=== PATIENT | male | born 1955 | race Caucasian/White ===

== ENCOUNTER → 2018-09-14 | Outpatient (CLI) | payer BC | LOC: COL.RAD 10:22 | DX: M47.814 Spondylosis without myelopathy or radiculopathy, thoracic region (principal); R22.1 Localized swelling, mass and lump, neck ==

== ENCOUNTER 2018-09-21 06:22 | Outpatient (CLI) | payer BC ==
--- NOTE | 2018-09-18 12:03 | NUR ---
left msg on machine.
[~2018-09-21] VITALS: Ht 177.8 cm; Wt 73.6 kg
[2018-09-21] VITALS (13 sets, daily range): BP systolic 117–156; BP diastolic 73–99; PULSE 63–91
[2018-09-21] MEDS ORDERED: NORCO 325 MG-51 TAB PO (06:43)
--- NOTE | 2018-09-21 08:00 | NUR ---
PT ON THE TABLE, MOMNITORING EQUIPMENT PLACED. IMAGES DONE AND SENT
--- NOTE | 2018-09-21 08:15 | NUR ---
PT DOING WELL. NO PAIN, JUST SLIGHT DISCOMFORT AND WAS GIVEN ADDITIONAL LIDOCAINE. SAMPLES TAKEN AND PLACED IN FORMALIN. ALL MONITORING EQUIPMENT REMOVED, SITE CLEANED AND PT ASSISTED TO CART.
--- NOTE | 2018-09-21 10:29 | NUR ---
tHIS NURSE SPOKE WITH dR Anderson.cLARIFIED NO POST XRAY NEEDED,ORDERS RECEIVED TO DISCHARGE HOME
--- NOTE | 2018-09-21 10:40 | NUR ---
Discharge instructions given to pt.Pt verbalizes understanding.Pt escorted out by student nurse.
== END 2018-09-21 10:43 | disposition home or self-care (01) ==
LOC: COL.RAD 06:22
DX: R91.8 Other nonspecific abnormal finding of lung field (principal)

== ENCOUNTER → 2018-10-13 | Outpatient (CLI) | payer BC ==
[~2018-10-13] MED LIST: NORCO 325 MG-51 TAB PO
== END ==
LOC: COL.PUL 10:19
DX: C34.12 Malignant neoplasm of upper lobe, left bronchus or lung (principal); C79.51 Secondary malignant neoplasm of bone; Z87.891 Personal history of nicotine dependence

== ENCOUNTER 2018-11-06 15:39 | Inpatient (IN) | payer BC ==
[~2018-11-06] VITALS: Ht 175.3 cm; Wt 79.8 kg
[~2018-11-06 15:39] MED LIST changes: +DAZIDOX10 MG PO; -NORCO 325 MG-51 TAB PO
[2018-11-06 16:12] LABS: BASO # 0.1 (0.0-0.2); BASO % 0.4 % (0.0-2.0); EOS % 0.2 % (0-4.0); GRAN % 90.9 % (42.2-75.2); HEMOGLOBIN 11.4 g/dl (13.5-18.0); LYMPH # 0.6 (1.2-3.4); LYMPH % 5.2 % (20.0-51.0); MEAN CELL VOLUME 98 fl (80.0-100.0); MEAN CORPUSCULAR HEMOGLOBIN 31 pg (27.0-31.0); MEAN CORPUSCULAR HGB CONC 32 g/dl (33.0-37.0); MEAN PLATELET VOLUME 9.3 fl (7.4-10.4); MONO # 0.3 (0.1-0.6); MONO % 2.7 % (1.7-9.3); PLATELET COUNT 331 K/mm3 (130-400); RED BLOOD COUNT 3.65 M/mm3 (4.20-5.60); REDCELL DISTRIBUTION WIDTH-CV 12.8 % (11.5-14.5)
[2018-11-06 16:17] LABS: HEMATOCRIT 35.7 % (42.0-52.0)
[2018-11-06 16:27] LABS: ALANINE AMINOTRANSFERASE 17 U/L (21-72); ALKALINE PHOSPHATASE 136 U/L (50-136); ANION GAP 7 mmol/L (7-16); AST,SGOT 23 U/L (15-37); BILIRUBIN,TOTAL 0.3 mg/dL (0.0-1.0); BLOOD UREA NITROGEN 18 mg/dL (9-20); CALCIUM 8.7 mg/dL (8.4-10.2); CARBON DIOXIDE 31 mmol/L (22-30); CHLORIDE 94 mmol/L (98-107); CREATININE, serum 0.68 (0.66-1.25); GLUCOSE 112 mg/dL (74-106); POTASSIUM 4.1 mmol/L (3.4-5.0); SODIUM 132 mmol/L (137-145); TOTAL PROTEIN 6.6 gm/dL (6.4-8.2)
[2018-11-06 16:35] LABS: TROPONIN-I < 0.012 ng/mL (0.000-0.035)
[2018-11-06 16:38] LABS: C-REACTIVE PROTEIN 17.3 mg/dL (0.0-0.9)
[2018-11-06] MEDS ORDERED: FENTANYL 50MCG TD (17:20)
[2018-11-06] MEDS ORDERED: MILK OF MA400 MG/52 PO (19:46)
[2018-11-06] MEDS ORDERED: STOOL SOFTENER100 M2 PO (19:47)
[2018-11-06 20:27] VITALS: BP 104/61; PULSE 80
[2018-11-06 20:30] VITALS: BP 104/61; PULSE 78; TEMP 98.7
--- NOTE | 2018-11-06 23:12 | NUR ---
Patient arrived to medical floor room 310 from ER at approximately 1920. Denies having pain and discomfort. Alert and oriented x 4, and able to make needs known. Son and at bedside upon arrival. Portacath to right chest, accessed by ER. NS running at 125 ml/hr per orders. Called nurse practioner to clarify ordes: give zirthromax IV tonight, start PO tomorrow. No need to change Fentanyl patch until its due on Tuesday (current patch to left scapula, changed on Tuesday). Port to right chest is without redness, warmth, swelling, and pain. LS coarse throughout. Denies having SOB and dyspnea. Wearing oxygen at 2 L/min via NC. Heart rate regular. BSAx4. 1+ edema BLE. Resting in bed with eyes closed at this time. Call light is within reach.
[2018-11-06 23:31] VITALS: BP 113/77; PULSE 86; TEMP 98.7
[2018-11-07 03:23] VITALS: BP 120/65; PULSE 99; TEMP 101.6
--- NOTE | 2018-11-07 04:01 | NUR ---
Patient has been resting in bed with eyes closed. Did complain of level 9 pain to back of shoulder blades around 0150. Given PRN Roxicodone 20 mg per PRN order. Patient had fever of 101.6 around 0330, and was given PRN APAP at that time. Continues to have moist, productive cough. Given collection cup for sputum culture, and explained how it worked, and patient voiced understanding. Denies having SOB and dyspnea. Continues to wear oxygen at 2 L/min via NC. NS continues to run into port to right chest at 125 ml/hr per orders. Resting in bed with eyes closed at this time. Call light is within reach.
[2018-11-07 05:53] LABS: BASO % 0.4 % (0.0-2.0); EOS % 0.4 % (0-4.0); GRAN # 9.2 (1.4-6.5); GRAN % 88.4 % (42.2-75.2); LYMPH # 0.7 (1.2-3.4); MEAN CELL VOLUME 99 fl (80.0-100.0); MEAN CORPUSCULAR HGB CONC 32 g/dl (33.0-37.0); MEAN PLATELET VOLUME 9.9 fl (7.4-10.4); MONO # 0.3 (0.1-0.6); MONO % 3.2 % (1.7-9.3); PLATELET COUNT 275 K/mm3 (130-400); RED BLOOD COUNT 3.09 M/mm3 (4.20-5.60); REDCELL DISTRIBUTION WIDTH-CV 13.2 % (11.5-14.5)
[2018-11-07 05:54] LABS: HEMATOCRIT 30.7 % (42.0-52.0); HEMOGLOBIN 9.7 g/dl (13.5-18.0); MEAN CORPUSCULAR HEMOGLOBIN 31 pg (27.0-31.0)
[2018-11-07 06:04] LABS: CALCIUM 8.1 mg/dL (8.4-10.2); CREATININE, serum 0.62 (0.66-1.25); POTASSIUM 4.4 mmol/L (3.4-5.0)
--- NOTE | 2018-11-07 07:01 | NUR ---
Report given to first shift nurse.
[2018-11-07 07:24] VITALS: BP 95/56; PULSE 68; TEMP 97.7
--- NOTE | 2018-11-07 08:46 | NUR ---
Patient assessment complete. Patient sitting in bed with at bedside. Heart RRR. Lung sounds diminished at bases, rt side coarse. Patient denies SOB, dizziness or lightheadedness. When asked about dizziness or lightheadedness, per patient "what is that?". Per patient, "no i don't get dizzy, it just takes a minute to get up". patient c/o some left sided chest pain r/t coughing. Denies nausea/vomiting or palpitations. Radial pulses strong bilaterally. denies other needs at this time. patient cooperative with cares.
--- NOTE | 2018-11-07 11:22 | NUR ---
First visit from the hot room attendant. No needs right now.
[2018-11-07 12:24] VITALS: BP 116/86; PULSE 77; TEMP 98.1
--- NOTE | 2018-11-07 13:11 | NUR ---
MANDA met with the patient and patient's , Lissette, to discuss discharge plan. The patient lives in [place] with his . He reports independence with ADLs and does not use any DME. The patient's PCP is Dr. Jeffy Mae and he receives his medications at [facility]. He reports no difficulties obtaining his meds. The patient does not have advanced directives, but he was interested in obtaining a form for DPOA-HC. MANDA provided. The patient plans to return home with his upon discharge. No additional needs at this time.
[2018-11-07 16:12] VITALS: BP 122/70; PULSE 88; TEMP 100.7
[2018-11-07 19:11] VITALS: BP 111/68; PULSE 87; TEMP 98.2
--- NOTE | 2018-11-07 19:23 | NUR ---
Patient had uneventful day. C/o left sided chest pain from coughing. Denies other needs. Report given to corrina ashraf. has been at bedside throughout day.
--- NOTE | 2018-11-07 19:43 | NUR ---
PT REFUSES,BUT SON CALLED BACK 3MNS LATER FOR A TX
--- NOTE | 2018-11-07 22:11 | NUR ---
Patient assessed around 1999. Complained of level 7 pain to shoulderblades, and was given PRN Oxycodone per orders. Denies having pain and discomfort at this time. Port to right chest. NS running at 125 ml/hr. Site is without redness, warmth, swelling, and pain. LS coarse throughout. On oxygen at 1.5 L/min via NC. Moist cough, but unable to produce sputum. Denies having SOB and dyspnea. Heart with regular rhythm, tachycadia. BSAx4. No edema. Resting in bed with eyes closed at this time. Call light is within reach. at bedside.
[2018-11-07 23:29] VITALS: BP 132/71; PULSE 81; TEMP 98.1
[2018-11-08 03:14] VITALS: BP 109/63; PULSE 103; TEMP 98.7
--- NOTE | 2018-11-08 04:45 | NUR ---
Patient has not had any further complaints of pain or discomfort so far this shift. Has been resting in bed with eyes closed. NS running at 125 ml/hr to port to right chest. Voices no questions, needs, or concerns at this time. Resting in bed with eyes closed. Call light is within reach.
[2018-11-08 06:06] LABS: BASO % 0.4 % (0.0-2.0); EOS # 0.1 (0.0-0.7); GRAN # 8.1 (1.4-6.5); GRAN % 86.6 % (42.2-75.2); LYMPH # 0.7 (1.2-3.4); LYMPH % 7.3 % (20.0-51.0); MEAN CELL VOLUME 100 fl (80.0-100.0); MEAN CORPUSCULAR HEMOGLOBIN 31 pg (27.0-31.0); MEAN CORPUSCULAR HGB CONC 31 g/dl (33.0-37.0); MEAN PLATELET VOLUME 9.6 fl (7.4-10.4); MONO # 0.4 (0.1-0.6); MONO % 3.8 % (1.7-9.3); PLATELET COUNT 296 K/mm3 (130-400)
[2018-11-08 06:22] LABS: CALCIUM 8.1 mg/dL (8.4-10.2); CREATININE, serum 0.61 (0.66-1.25); POTASSIUM 4.3 mmol/L (3.4-5.0)
--- NOTE | 2018-11-08 07:00 | NUR ---
This nurse receiving report, heard loud noise come from patient room. This nurse and Swetha RN went into room to check on patient. Patient was getting back into bed. Per patient he did not fall, he stumbled into bathroom door. Denies falling to floor but hit toe. Settled patient into bed, bed alarm on. Call light within reach. Patient asked to have blinds opened.
[2018-11-08 07:16] VITALS: BP 143/76; PULSE 99; TEMP 98.4
--- NOTE | 2018-11-08 07:27 | NUR ---
Report given to day shift nurse.
--- NOTE | 2018-11-08 10:16 | NUR ---
Patient assessment complete and charted. Lung sounds diminished throughout this morning. Heart RR, tachy. patient appears very sleepy this morning, easily arousable. Per Pt, "didn't sleep well last night". Patient on 2L NC. C/O left sided chest pain. BLE 1+. NS at 125mls/hr, no complications. Denies other needs at this time. at bedside, call light within reach.
[2018-11-08 11:47] VITALS: BP 111/65; PULSE 82; TEMP 98.6
[2018-11-08] MEDS ORDERED: ZITHROMAX500 M2 PO (14:44)
[2018-11-08] MEDS ORDERED: OMNICEF 300MG300 MG PO (14:51)
--- NOTE | 2018-11-08 15:03 | NUR ---
The patient qualified for home oxygen. MANDA met with the patient and patient's to discuss DME options and presented and explained the patient choice form for DME. The patient chose [facility]. Patient choice form signed by the patient and he was provided a copy. MANDA contacted [facility]. [facility] reports that they are not taking any new oxygen orders at this time. MANDA then met with the patient and patient's to inform. The patient then chose [facility]. MANDA contacted and faxed the patient's oxygen order to Darnell at [facility]. MANDA awaiting to hear back from [facility].
[2018-11-08 15:16] VITALS: BP 115/64; PULSE 106; TEMP 98.5
--- NOTE | 2018-11-08 17:00 | NUR ---
Patient laying in bed awaiting discharge. Patient and family awaiting for O2 delivery for home use. This nurse went to de-access patient portacath. Patient de-accessed port on his own. Site is CDI, no bleeding or complications. Patient and family getting irritated that they haven't left yet.
--- NOTE | 2018-11-08 17:58 | NUR ---
O2 for home use just delivered. Discharge instructions reviewed and discussed. All questions answered. No other needs. Patient escorted out by [facility] staff.
--- NOTE | 2018-11-09 10:50 | NUR ---
[facility] delivered the patient's oxygen to his room.
== END 2018-11-08 18:17 | disposition home or self-care (01) | DRG 194 ==
LOC: COL.ER 15:39 → MEDICAL 17:35
PROVIDERS: Emergency Medicine; Physician Assistant; ADMIT Internal Medicine
DX: J18.1 Lobar pneumonia, unspecified organism (principal); C34.12 Malignant neoplasm of upper lobe, left bronchus or lung; C79.51 Secondary malignant neoplasm of bone; K59.00 Constipation, unspecified; R53.1 Weakness; Z87.891 Personal history of nicotine dependence
CPT/HCPCS: 99222-AI; 99232-AI; 99239; A4216; J0456; J0696; J1650; J7030; J7050; Q9967

== ENCOUNTER 2020-01-01 09:16 | Emergency (ER) | payer BC ==
[~2020-01-01] VITALS: Ht 175.3 cm; Wt 65.9 kg
[~2020-01-01 09:16] MED LIST changes: +FENTANYL 50MCG TD; +MILK OF MA400 MG/52 PO; +OMNICEF 300MG300 MG PO; +STOOL SOFTENER100 M2 PO; +ZITHROMAX500 M2 PO
[2020-01-01 09:29] VITALS: TEMP 98.4
[2020-01-01 10:21] LABS: BASO # 0.1 (0.0-0.2); BASO % 1.3 % (0.0-2.0); EOS # 0.4 (0.0-0.7); EOS % 5.8 % (0-4.0); GRAN # 4.1 (1.4-6.5); GRAN % 68.5 % (42.2-75.2); HEMATOCRIT 42.4 % (42.0-52.0); HEMOGLOBIN 14.3 g/dl (13.5-18.0); LYMPH # 0.9 (1.2-3.4); LYMPH % 15.5 % (20.0-51.0); MEAN CELL VOLUME 94 fl (80.0-100.0); MEAN CORPUSCULAR HEMOGLOBIN 32 pg (27.0-31.0); MEAN CORPUSCULAR HGB CONC 34 g/dl (33.0-37.0); MEAN PLATELET VOLUME 10.3 fl (7.4-10.4); MONO # 0.5 (0.1-0.6); MONO % 8.7 % (1.7-9.3); PLATELET COUNT 214 K/mm3 (130-400); RED BLOOD COUNT 4.49 M/mm3 (4.20-5.60); REDCELL DISTRIBUTION WIDTH-CV 11.5 % (11.5-14.5)
[2020-01-01 10:45] LABS: COLLECTION METHOD CLEAN CATCH
[2020-01-01 10:53] LABS: PH 5 (5-8); SQUAMOUS EPITHELIAL None Seen /hpf; URINE APPEARANCE Clear; URINE BACTERIA None Seen /hpf; URINE BILIRUBIN Negative (NEGATIVE); URINE BLOOD Negative (NEGATIVE); URINE COLOR Yellow; URINE GLUCOSE Negative (NEGATIVE); URINE KETONE 2+ (NEGATIVE); URINE LEUKOCYTE ESTERASE Negative (NEGATIVE); URINE NITRATE Negative (NEGATIVE); URINE PROTEIN(semi-quant) Negative (NEGATIVE); URINE RBC 0-2 /hpf; URINE UROBILINOGEN Negative (NEGATIVE)
[2020-01-01 12:09] LABS: ALBUMIN 3.9 gm/dL (3.5-5.0); BILIRUBIN,TOTAL 0.7 mg/dL (0.0-1.0); CALCIUM 9.2 mg/dL (8.4-10.2); CREATININE, serum 0.78 (0.66-1.25); POTASSIUM 4.1 mmol/L (3.4-5.0); TOTAL PROTEIN 7.5 gm/dL (6.4-8.2)
[2020-01-01] MEDS ORDERED: ZOFRAN ODT4 MG PO (14:30)
[2020-01-01 14:40] VITALS: BP 95/68; PULSE 90
== END 2020-01-01 14:43 | disposition home or self-care (01) ==
LOC: COL.ER 09:16
PROVIDERS: Emergency Medicine; Physician Assistant
DX: E16.2 Hypoglycemia, unspecified (principal); Z85.118 Personal history of other malignant neoplasm of bronchus and lung; Z92.21 Personal history of antineoplastic chemotherapy; Z87.891 Personal history of nicotine dependence
CPT/HCPCS: J1170; J2405; J2550; J7030; Q9967

== ENCOUNTER 2020-03-17 16:15 | Inpatient (IN) | payer BC ==
[2020-03-17] VITALS (179 sets, daily range): BP systolic 103–124; BP diastolic 69–85; PULSE 72–81; TEMP 97.7–99.4; O2SAT 92–100
[~2020-03-17] VITALS: Ht 177.8 cm; Wt 67.4 kg
[~2020-03-17 16:15] MED LIST changes: +ZOFRAN ODT4 MG PO
[2020-03-17 18:09] LABS: ARTERIAL BLD GAS O2 SATURATION 95.7 % (92-100); ARTERIAL BLOOD GAS BASE EXCESS -5.6 (-2-2); ARTERIAL BLOOD GAS PCO2 34.3 mmHg (35-45); ARTERIAL BLOOD GAS PO2 80.2 mmHg (80-100); ARTERIAL BLOOD GAS pH 7.36 (7.35-7.45)
--- NOTE | 2020-03-17 19:30 | NUR ---
received report from LARISSA Whitley.
--- NOTE | 2020-03-17 19:49 | NUR ---
Patient arrived to unit via EMS transport at approximately 1720. Patient remains alert and oriented, answers questions appropriately. Patient is able to answer questions about medical history and current medications, is mildly dyspnic while speaking, on 2L O2 via NC. Patient is voiding into a urinal independently, urine is ronda and clear. IVF and antibiotics running per order. COVID test conducted per order, patient tolerated well. Labs collected per order via peripherial stick. Patient denies needs at this time, call light within reach, bed rails up, alarm on.
[2020-03-17 19:50] LABS: BASO % 0.3 % (0.0-2.0); EOS % 0.3 % (0-4.0); GRAN # 6.7 (1.4-6.5); LYMPH # 0.3 (1.2-3.4); LYMPH % 3.5 % (20.0-51.0); MEAN CELL VOLUME 96 fl (80.0-100.0); MEAN CORPUSCULAR HEMOGLOBIN 32 pg (27.0-31.0); MEAN CORPUSCULAR HGB CONC 34 g/dl (33.0-37.0); MEAN PLATELET VOLUME 9.2 fl (7.4-10.4); MONO # 0.1 (0.1-0.6); MONO % 1.5 % (1.7-9.3); PLATELET COUNT 311 K/mm3 (130-400); RED BLOOD COUNT 3.71 M/mm3 (4.20-5.60); REDCELL DISTRIBUTION WIDTH-CV 14.9 % (11.5-14.5)
[2020-03-17 19:53] LABS: HEMATOCRIT 35.6 % (42.0-52.0)
[2020-03-17 20:00] LABS: CREATININE, serum 0.57 (0.66-1.25); INR 1.3 (0.8-3.0); POTASSIUM 4.4 mmol/L (3.4-5.0); PROTHROMBIN TIME 14.6 SECONDS (9.7-12.8)
[2020-03-18] VITALS (505 sets, daily range): BP systolic 101–139; BP diastolic 75–87; PULSE 76–88; TEMP 97.6–98.2; O2SAT 74–100
--- NOTE | 2020-03-18 04:44 | NUR ---
report given to LARISSA Hough. care trasnferred at this time.
[2020-03-18 09:50] LABS: MEAN CELL VOLUME 96 fl (80.0-100.0); MEAN CORPUSCULAR HEMOGLOBIN 32 pg (27.0-31.0); MEAN CORPUSCULAR HGB CONC 34 g/dl (33.0-37.0); MEAN PLATELET VOLUME 9.4 fl (7.4-10.4); PLATELET COUNT 371 K/mm3 (130-400); RED BLOOD COUNT 3.73 M/mm3 (4.20-5.60); REDCELL DISTRIBUTION WIDTH-CV 14.6 % (11.5-14.5)
[2020-03-18 09:52] LABS: CALCIUM 8.5 mg/dL (8.4-10.2); CREATININE, serum 0.55 (0.66-1.25); POTASSIUM 4.1 mmol/L (3.4-5.0)
--- NOTE | 2020-03-18 10:02 | NUR ---
Fire Systems Inspector contacted patient's , Lissette (ph#[phone]) to discuss discharge planning as patient is currently in contact isolation. Patient lives in [place] with Austenyamil and sees Dr. Mae for primary care. Patient follows with Dr. Wheeler and Mirnacalista reports they stopped chemotherapy in December as patient got really sick. Patient obtains medications from [facility] with no difficulties. Patient does not use any DME and is normally independent with ADLS. Mirnacalista reports that she did have to provide some assistance over the weekend due to patient being so sick. Lissette advised that patient does not have DPOA-HC. Plan is for patient to return home at discharge. MANDA attended clinical rounds with the team and patient to transfer to medical floor today. MANDA requested PT/OT to be ordered and will continue to follow.
[2020-03-18 10:28] LABS: HEMATOCRIT 35.8 % (42.0-52.0)
[2020-03-18 10:33] LABS: BAND 14 % (0-10); LYMPHOCYTE 7 % (20.0-51.0); NEUTROPHILS 79 % (42.0-75.2); PLATELET ESTIMATE NORMAL (NORMAL)
--- NOTE | 2020-03-18 22:29 | NUR ---
Pt resting in bed, assessment completed. pt denies shortness of breath, chest pain, and pain. gave meds per AUG, no other needs at this time.
[2020-03-19] VITALS: BP 134/79; PULSE 75; TEMP 98.1
[2020-03-19 03:58] VITALS: BP 137/83; PULSE 73; TEMP 97.7
--- NOTE | 2020-03-19 05:06 | NUR ---
pt sleeping in bed most of shift, independent in room and called for any needs. pt denies pain or shortness of breath and is on room air. no other needs at this time, will continue to monitor.
[2020-03-19 06:42] LABS: MEAN CELL VOLUME 96 fl (80.0-100.0); MEAN CORPUSCULAR HEMOGLOBIN 32 pg (27.0-31.0); MEAN CORPUSCULAR HGB CONC 33 g/dl (33.0-37.0); MEAN PLATELET VOLUME 9.4 fl (7.4-10.4); PLATELET COUNT 373 K/mm3 (130-400); RED BLOOD COUNT 3.43 M/mm3 (4.20-5.60); REDCELL DISTRIBUTION WIDTH-CV 14.9 % (11.5-14.5)
[2020-03-19 06:59] LABS: CALCIUM 8.5 mg/dL (8.4-10.2); CREATININE, serum 0.55 (0.66-1.25); POTASSIUM 3.8 mmol/L (3.4-5.0)
[2020-03-19 07:10] LABS: HEMATOCRIT 32.9 % (42.0-52.0)
--- NOTE | 2020-03-19 07:30 | NUR ---
PATIENT IS AWAKE IN ROOM WANTING TELE AND IV DISCONNECTED BECAUSE HE WAS READY TO GO HOME. DID AGREE TO WAIT TO SPEAK WITH PROVIDERS BEFORE REMOVING LINES HE WAS TO BE GETTING IV ANTIBIOTICS. HE STATED HIS WOULD BE HERE BY 0800 TO PICK HIM UP. I DID TELL HIM THERE WAS NO GUARANTEE THAT HE WOULD BE RELEASED BY THEN.
[2020-03-19 07:35] VITALS: BP 124/76; PULSE 79; TEMP 97.7
[2020-03-19 08:54] LABS: BAND 23 % (0-10); LYMPHOCYTE 5 % (20.0-51.0); NEUTROPHILS 68 % (42.0-75.2)
[2020-03-19 08:55] LABS: PLATELET ESTIMATE NORMAL (NORMAL)
--- NOTE | 2020-03-19 09:36 | NUR ---
Initial visit; Patient talked at length about his health issues and thanked Shiatsu Therapist for listening, offering spiritual care, especially prayer. Shiatsu Therapist will follow up while Austin is a patient here.
[2020-03-19 11:19] VITALS: BP 115/66; PULSE 87; TEMP 97.8
[2020-03-19] MEDS ORDERED: OMNICEF 300MG300 MG PO (12:35)
[2020-03-19] MEDS ORDERED: LEVAQUIN 750MG750 M1 PO (12:36)
--- NOTE | 2020-03-19 17:35 | NUR ---
PATIENT DISCHARGED HOME WITH AT 1400, REMOVED OWN TELEMETRY AND INT BEFORE NURSING STAFF COULD ENTER ROOM. IT WAS ASKED THAT IN THE FUTURE THAT HE WAIT FOR STAFF TO REMOVED PERIPHERAL LINE WE NEED TO ASSESS AFTER REMOVAL. PERSONAL BELONGINGS WITH PATIENT AND HE WAS ESCORTED TO PRIVATE VEHICLE BY [facility] STAFF.
== END 2020-03-19 14:00 | disposition home or self-care (01) | DRG 193 ==
LOC: IMCU 16:15 → ICU 17:44 → MEDICAL 17:44
PROVIDERS: Nurse Practitioner Primary Care; Physician Assistant; Student in an Organized Health Care Education/Training Program; ADMIT Internal Medicine
DX: J18.9 Pneumonia, unspecified organism (principal); J96.01 Acute respiratory failure with hypoxia; E87.1 Hypo-osmolality and hyponatremia; E87.2 Acidosis; Z20.828 Contact with and (suspected) exposure to other viral communicable diseases; I95.9 Hypotension, unspecified; J43.9 Emphysema, unspecified; E16.2 Hypoglycemia, unspecified; Z85.118 Personal history of other malignant neoplasm of bronchus and lung; Z87.891 Personal history of nicotine dependence
CPT/HCPCS: 99223-AI; 99239; J1100; J1650; J1956; J2543; J7030

== ENCOUNTER 2020-03-25 13:40 | Inpatient (IN) | payer BC ==
[2020-03-25] VITALS (221 sets, daily range): BP systolic 76–144; BP diastolic 63–99; PULSE 54–84; TEMP 97.9–100.3; O2SAT 81–100
[~2020-03-25] VITALS: Ht 177.8 cm; Wt 69.0 kg
[~2020-03-25 13:40] MED LIST changes: +LEVAQUIN 750MG750 M1 PO
[2020-03-25 14:43] LABS: BASO # 0.1 (0.0-0.2); BASO % 0.7 % (0.0-2.0); EOS # 0.3 (0.0-0.7); EOS % 4.4 % (0-4.0); GRAN # 5.2 (1.4-6.5); HEMATOCRIT 38.8 % (42.0-52.0); HEMOGLOBIN 13.2 g/dl (13.5-18.0); LYMPH # 0.6 (1.2-3.4); LYMPH % 8.3 % (20.0-51.0); MEAN CELL VOLUME 94 fl (80.0-100.0); MEAN CORPUSCULAR HEMOGLOBIN 32 pg (27.0-31.0); MEAN CORPUSCULAR HGB CONC 34 g/dl (33.0-37.0); MEAN PLATELET VOLUME 9.3 fl (7.4-10.4); MONO # 0.7 (0.1-0.6); MONO % 10.3 % (1.7-9.3); PLATELET COUNT 304 K/mm3 (130-400); RED BLOOD COUNT 4.13 M/mm3 (4.20-5.60); REDCELL DISTRIBUTION WIDTH-CV 14.8 % (11.5-14.5)
[2020-03-25 14:49] LABS: ARTERIAL BLD GAS O2 SATURATION 92.2 % (92-100); ARTERIAL BLD GAS TCO2 CT 21.9; ARTERIAL BLOOD GAS BASE EXCESS -1.7 (-2-2); ARTERIAL BLOOD GAS PCO2 29.8 mmHg (35-45); ARTERIAL BLOOD GAS pH 7.47 (7.35-7.45)
[2020-03-25 14:54] LABS: ALBUMIN 2.9 gm/dL (3.5-5.0); BILIRUBIN,TOTAL 0.6 mg/dL (0.0-1.0); CREATININE, serum 0.59 (0.66-1.25); POTASSIUM 3.8 mmol/L (3.4-5.0); TOTAL PROTEIN 5.9 gm/dL (6.4-8.2)
[2020-03-25 18:41] LABS: CLOSTRIDIUM DIFF A/B NEG; CLOSTRIDIUM DIFF A/B INTERP No C.diff present
--- NOTE | 2020-03-25 19:35 | NUR ---
Assessment complete; Patient alert and oriented and mildly drowsy. Denies any pain or shortness of breath. Shortly after initiation of levophed, HR observed dropping to 49 several times then increasing back to 60's. Some ectopy noted. Levophed dose lowered. No further episodes of bradycardia or ectopy noted after lowering dose. Will continue to [facility].
--- NOTE | 2020-03-25 21:12 | NUR ---
Patient transported to CT. Attached to portable monitor. Tolerated procedure well; returned to the unit at 2126.
[2020-03-26] VITALS (480 sets, daily range): BP systolic 103–132; BP diastolic 63–88; PULSE 52–77; TEMP 97.6–98.3; O2SAT 81–100
--- NOTE | 2020-03-26 | NUR ---
Patient's skin cool and clammy. Difficulty obtaining temperature orally or via axillary. Temp 97.6 obtained via groin. warm blankets placed on patient. Fan had been on and was turned off at this time. Will continue to monitor.
[2020-03-26 01:37] LABS: COLLECTION METHOD CLEAN CATCH
[2020-03-26 01:42] LABS: MUCOUS Present /lpf; PH 5 (5-8); SQUAMOUS EPITHELIAL None Seen /hpf; URINE APPEARANCE Clear; URINE BACTERIA None Seen /hpf; URINE BILIRUBIN Negative (NEGATIVE); URINE BLOOD Negative (NEGATIVE); URINE COLOR Straw; URINE GLUCOSE Negative (NEGATIVE); URINE KETONE 1+ (NEGATIVE); URINE LEUKOCYTE ESTERASE Negative (NEGATIVE); URINE NITRATE Negative (NEGATIVE); URINE PROTEIN(semi-quant) Negative (NEGATIVE); URINE RBC None Seen /hpf; URINE UROBILINOGEN Negative (NEGATIVE)
[2020-03-26 05:00] LABS: BASO % 0.8 % (0.0-2.0); EOS % 0.4 % (0-4.0); GRAN # 2.2 (1.4-6.5); GRAN % 84.1 % (42.2-75.2); HEMOGLOBIN 11.7 g/dl (13.5-18.0); LYMPH # 0.3 (1.2-3.4); LYMPH % 10.6 % (20.0-51.0); MEAN CORPUSCULAR HEMOGLOBIN 32 pg (27.0-31.0); MEAN CORPUSCULAR HGB CONC 33 g/dl (33.0-37.0); MONO # 0.1 (0.1-0.6); PLATELET COUNT 262 K/mm3 (130-400); RED BLOOD COUNT 3.64 M/mm3 (4.20-5.60); REDCELL DISTRIBUTION WIDTH-CV 14.8 % (11.5-14.5)
[2020-03-26 05:03] LABS: INR 1.6 (0.8-3.0); PROTHROMBIN TIME 17.4 SECONDS (9.7-12.8)
[2020-03-26 05:12] LABS: CALCIUM 7.2 mg/dL (8.4-10.2); CREATININE, serum 0.5 (0.66-1.25); MAGNESIUM 1.8 mg/dL (1.6-2.3); POTASSIUM 4.3 mmol/L (3.4-5.0)
[2020-03-26 05:51] LABS: HEMATOCRIT 35.9 % (42.0-52.0); MEAN CELL VOLUME 99 fl (80.0-100.0)
[2020-03-26 06:13] LABS: ARTERIAL BLD GAS O2 SATURATION 92.3 % (92-100); ARTERIAL BLOOD GAS BASE EXCESS -7.6 (-2-2); ARTERIAL BLOOD GAS HCO3 17.9 meq/L (22-26); ARTERIAL BLOOD GAS PCO2 36.2 mmHg (35-45); ARTERIAL BLOOD GAS pH 7.31 (7.35-7.45)
--- NOTE | 2020-03-26 06:30 | NUR ---
O2 increased from 2L NC to 4L NC based on this mornings ABG results. Currenlty 94-95% on 4L.
--- NOTE | 2020-03-26 11:03 | NUR ---
Fishing Game Warden met with patient to discuss discharge planning. Patient is a readmit and was here 03/17/20-03/19/20 for pneumonia then discharged home. Patient lives in [place] with his , Lissette (ph#[phone]) and sees Dr. Mae for primary care. Patient states he did not see Dr. Mae in between hospital stays but that his called Dr. Mae yesterday and they were advised to go to the ER. Patient follows [facility] Dr. Trevino but reports he has not seen him in about a year. Patient also sees Dr. Wheeler but reports he last saw him maybe about six months ago. Patient stopped chemotherapy in December as he stated it made him sick. Patient does not have home oxygen but is currently requiring 2 liters. Patient has no DME at home and reports [facility] ADLS. PT/OT have been ordered. Patient does not have Advance Directives and was not interested in designating DPOA-HC at this time. Patient states he will discuss this with his . Patient also lists his son, Enrique (ph#[phone]) as another contact. Patient plans to return home at discharge. MANDA contacted patient's , Lissette to review discharge plan. Lissette is in agreement with patient returning home whenever he is ready to be discharged. MANDA will continue to follow.
--- NOTE | 2020-03-26 11:28 | NUR ---
First visit from the office auditor. No needs right now.
[2020-03-26 13:27] LABS: ARTERIAL BLD GAS O2 SATURATION 93.8 % (92-100); ARTERIAL BLD GAS TCO2 CT 21.9; ARTERIAL BLOOD GAS HCO3 20.9 meq/L (22-26); ARTERIAL BLOOD GAS PCO2 33.3 mmHg (35-45); ARTERIAL BLOOD GAS pH 7.42 (7.35-7.45)
--- NOTE | 2020-03-26 15:30 | NUR ---
Patient arrived to the floor at this time. He is alert and oriented, stable at this time. NO complaints of pain or discomfort. Denies needs at this time. Water provided as requested. He was able to call his with my wireless phone. Lung sounds are coarse. Heart sounds normal. Will continue to monitor. Call light is in reach.
--- NOTE | 2020-03-26 20:12 | NUR ---
Assessment complete at this time. Patient wears 2 liters 02 and shows no increased work of breathing. All lung kulkarni on left side have audible coarse crackles. Patient ambulates steadily to the bathroom. No complaints of pain and no edema present. Call light within reach. Will continue to monitor.
[2020-03-27 03:21] VITALS: BP 106/59; PULSE 54; TEMP 97.6
[2020-03-27 04:38] LABS: MEAN CELL VOLUME 96 fl (80.0-100.0); MEAN CORPUSCULAR HGB CONC 33 g/dl (33.0-37.0); MEAN PLATELET VOLUME 9.3 fl (7.4-10.4); PLATELET COUNT 281 K/mm3 (130-400); RED BLOOD COUNT 3.13 M/mm3 (4.20-5.60); REDCELL DISTRIBUTION WIDTH-CV 14.9 % (11.5-14.5)
[2020-03-27 04:44] LABS: HEMATOCRIT 29.9 % (42.0-52.0); HEMOGLOBIN 9.8 g/dl (13.5-18.0); MEAN CORPUSCULAR HEMOGLOBIN 31 pg (27.0-31.0)
[2020-03-27 04:45] LABS: INR 1.4 (0.8-3.0); PROTHROMBIN TIME 15.7 SECONDS (9.7-12.8)
[2020-03-27 04:59] LABS: BAND 22 % (0-10); LYMPHOCYTE 3 % (20.0-51.0); NEUTROPHILS 73 % (42.0-75.2); PLATELET ESTIMATE NORMAL (NORMAL)
[2020-03-27 05:02] LABS: ANISOCYTOSIS 1+
[2020-03-27 05:53] LABS: ARTERIAL BLD GAS TCO2 CT 25.6; ARTERIAL BLOOD GAS BASE EXCESS -0.2 (-2-2); ARTERIAL BLOOD GAS HCO3 24.4 meq/L (22-26); ARTERIAL BLOOD GAS PCO2 39.7 mmHg (35-45); ARTERIAL BLOOD GAS PO2 64.4 mmHg (80-100); ARTERIAL BLOOD GAS pH 7.41 (7.35-7.45)
[2020-03-27 08:20] VITALS: BP 102/68; PULSE 69; TEMP 97.5
[2020-03-27 08:26] LABS: CALCIUM 7.8 mg/dL (8.4-10.2); CREATININE, serum 0.48 (0.66-1.25)
--- NOTE | 2020-03-27 10:22 | NUR ---
Pt awake and alert upon entry, no C/O pain at this time, shift assessments complete, left Pt call light in reach, bed in lowest position.
[2020-03-27 11:33] VITALS: BP 100/70; PULSE 58; TEMP 98.5
--- NOTE | 2020-03-27 13:39 | NUR ---
Primary nurse was assisted with [id number] patient care by [facility] Evelyn Nunez and [facility] instructor Alida Walls RN-BC.
[2020-03-27 15:50] VITALS: BP 108/68; PULSE 67; TEMP 97.4
--- NOTE | 2020-03-27 18:15 | NUR ---
Pt resting in the room, no C/O pain or other issues noted, VS have remained stable.
[2020-03-27 19:22] VITALS: BP 101/65; PULSE 63; TEMP 97.5
--- NOTE | 2020-03-27 20:30 | NUR ---
Resting in bed. Assessment complete. Left lung coarse right lung clear. Heart sounds normal. Bowels active x4. Pulses present thorughout. No edema noted. INT left forearm removed at patient request. Patient has PAC to right chest flushed well. Denies pain. Denies needs at this time. Call light in reach.
[2020-03-27 23:30] VITALS: BP 98/54; PULSE 70; TEMP 97.6
--- NOTE | 2020-03-27 23:43 | NUR ---
Resting in bed. Denies needs. Call light in reach.
--- NOTE | 2020-03-28 02:00 | NUR ---
Resting in bed. Denies needs. Call light in reach.
[2020-03-28 03:19] VITALS: BP 117/69; PULSE 66; TEMP 97.3
--- NOTE | 2020-03-28 05:07 | NUR ---
Patient had uneventful night. Resting in bed this AM. Call meet still.
[2020-03-28 05:41] LABS: ARTERIAL BLD GAS O2 SATURATION 96.1 % (92-100); ARTERIAL BLD GAS TCO2 CT 27.2; ARTERIAL BLOOD GAS BASE EXCESS 1.2 (-2-2); ARTERIAL BLOOD GAS HCO3 25.9 meq/L (22-26); ARTERIAL BLOOD GAS PCO2 41.4 mmHg (35-45); ARTERIAL BLOOD GAS PO2 84.1 mmHg (80-100); ARTERIAL BLOOD GAS pH 7.41 (7.35-7.45)
[2020-03-28 06:30] LABS: MEAN CELL VOLUME 98 fl (80.0-100.0); MEAN CORPUSCULAR HGB CONC 33 g/dl (33.0-37.0); MEAN PLATELET VOLUME 9.7 fl (7.4-10.4); PLATELET COUNT 295 K/mm3 (130-400); RED BLOOD COUNT 3.04 M/mm3 (4.20-5.60); REDCELL DISTRIBUTION WIDTH-CV 15.4 % (11.5-14.5)
[2020-03-28 06:33] LABS: HEMATOCRIT 29.8 % (42.0-52.0); HEMOGLOBIN 9.7 g/dl (13.5-18.0); MEAN CORPUSCULAR HEMOGLOBIN 32 pg (27.0-31.0)
--- NOTE | 2020-03-28 07:00 | NUR ---
Report given to LARISSA Grider
[2020-03-28 07:36] LABS: BAND 15 % (0-10); HYPOCHROMIA 1+; LYMPHOCYTE 3 % (20.0-51.0); NEUTROPHILS 81 % (42.0-75.2); PLATELET ESTIMATE NORMAL (NORMAL)
[2020-03-28 07:50] VITALS: BP 114/71; PULSE 101; TEMP 97.8
[2020-03-28 08:14] LABS: INR 1.2 (0.8-3.0); PROTHROMBIN TIME 13.6 SECONDS (9.7-12.8)
[2020-03-28 08:16] LABS: CALCIUM 8.2 mg/dL (8.4-10.2); CREATININE, serum 0.52 (0.66-1.25); POTASSIUM 3.5 mmol/L (3.4-5.0)
[2020-03-28] MEDS ORDERED: OMNICEF 300MG300 MG PO (09:35)
[2020-03-28] MEDS ORDERED: DOXYCYCLINE 10100 MG PO (09:36)
[2020-03-28] MEDS ORDERED: PREDNISONE20 MG PO (09:39)
--- NOTE | 2020-03-28 09:49 | NUR ---
Pt removed port access, new access established flushed with 10 ml NS heparinized with 5 ml heparin fluse and port deaccessed, covered with 2X2 gauze and tegaderm.
[2020-03-28] MEDS ORDERED: OXYGEN NASAL.CANN (11:10)
[2020-03-28 11:51] VITALS: BP 103/65; PULSE 75; TEMP 97.4
--- NOTE | 2020-03-28 12:20 | NUR ---
Pt discharged to home, discussed discharge information with Pt, Pt walked to entrance without escort.
--- NOTE | 2020-03-28 13:33 | NUR ---
Primary nurse was assisted with [phone] patient care by [facility] Evelyn Nunez and [facility] instructor Alida Walls RN-BC.
--- NOTE | 2020-03-28 15:03 | NUR ---
Mincing Machine Operator was notified that patient is ready for discharge today and will require 3 liters per Genna, RT. MANDA met with patient who would like to set up home oxygen through [facility]. MANDA contacted Miriam at [facility] and faxed referral/order. MANDA collaborated with Miriam to correct order and re-faxed order once corrected. MANDA contacted patient's , Austensie who will picking belt operator patient's oxygen on the way to picking belt operator patient. MANDA notified Miriam when Dossie was on her way to picking belt operator oxygen. No additional needs at this time.
== END 2020-03-28 12:20 | disposition home or self-care (01) | DRG 871 ==
LOC: COL.ER 13:40 → ICU 16:13 → MEDICAL 03-26 14:57
PROVIDERS: Emergency Medicine; Family Medicine; Internal Medicine Pulmonary Disease; Physician Assistant; ADMIT Internal Medicine
DX: A41.9 Sepsis, unspecified organism (principal); J18.9 Pneumonia, unspecified organism; J96.01 Acute respiratory failure with hypoxia; E87.1 Hypo-osmolality and hyponatremia; C34.90 Malignant neoplasm of unspecified part of unspecified bronchus or lung; E44.0 Moderate protein-calorie malnutrition; E87.2 Acidosis; Z68.1 Body mass index [BMI] 19.9 or less, adult; Z66 Do not resuscitate; R65.20 Severe sepsis without septic shock; Z20.828 Contact with and (suspected) exposure to other viral communicable diseases; R19.7 Diarrhea, unspecified; D64.9 Anemia, unspecified; Z87.891 Personal history of nicotine dependence
CPT/HCPCS: 99223-AI; 99232-AI; 99233-AI; 99239; J0692; J1650; J1956; J2405; J2543; J2920; J3370; J7030; J7050; J7060; J7120; J7512; Q9967

== ENCOUNTER 2020-05-12 15:36 | Inpatient (IN) | payer BC ==
[~2020-05-12] VITALS: Ht 175.3 cm; Wt 66.9 kg
[~2020-05-12 15:36] MED LIST changes: +DOXYCYCLINE 10100 MG PO; +OXYGEN NASAL.CANN; +PREDNISONE20 MG PO
[2020-05-12 16:29] LABS: BASO # 0.1 (0.0-0.2); BASO % 0.7 % (0.0-2.0); EOS # 0.1 (0.0-0.7); EOS % 1.4 % (0-4.0); GRAN # 7.8 (1.4-6.5); GRAN % 79.1 % (42.2-75.2); HEMATOCRIT 40.1 % (42.0-52.0); HEMOGLOBIN 13.2 g/dl (13.5-18.0); LYMPH # 0.8 (1.2-3.4); LYMPH % 8.5 % (20.0-51.0); MEAN CELL VOLUME 98 fl (80.0-100.0); MEAN CORPUSCULAR HEMOGLOBIN 32 pg (27.0-31.0); MEAN CORPUSCULAR HGB CONC 33 g/dl (33.0-37.0); MEAN PLATELET VOLUME 9.5 fl (7.4-10.4); MONO % 9.9 % (1.7-9.3); PLATELET COUNT 223 K/mm3 (130-400); RED BLOOD COUNT 4.09 M/mm3 (4.20-5.60); REDCELL DISTRIBUTION WIDTH-CV 14.6 % (11.5-14.5)
[2020-05-12 16:41] LABS: ALANINE AMINOTRANSFERASE 9 U/L (4-49); ALBUMIN 3.4 gm/dL (3.5-5.0); ALKALINE PHOSPHATASE 114 U/L (50-136); ANION GAP 8 mmol/L (7-16); AST,SGOT 27 U/L (15-37); BILIRUBIN,TOTAL 1.1 mg/dL (0.0-1.0); BLOOD UREA NITROGEN 15 mg/dL (9-20); CALCIUM 8.5 mg/dL (8.4-10.2); CARBON DIOXIDE 30 mmol/L (22-30); CHLORIDE 90 mmol/L (98-107); CREATININE, serum 0.79 (0.66-1.25); GLUCOSE 90 mg/dL (74-106); POTASSIUM 4.4 mmol/L (3.4-5.0); SODIUM 128 mmol/L (137-145); TOTAL PROTEIN 6.3 gm/dL (6.4-8.2)
[2020-05-12 16:57] LABS: TROPONIN-I < 0.012 ng/mL (0.000-0.035)
--- NOTE | 2020-05-12 19:18 | NUR ---
Vancomycin Initial Dosing Pharmacy Note Ordering provider: Kenna Henson Indication/duration: PNA LABS: eCrCl ~ 90 mL/min Recommendation: Loading dose: 1.5 grams Maintenance dose: 1.25 grams every 12 hours Trough goal: 15-20 ug/mL
--- NOTE | 2020-05-12 21:00 | NUR ---
Pt arrived to medical unit room 306 from ED via stretcher at 1999. Oriented pt to room, admission assessments and med rec completed. IV fluids and Zosyn running via gravity upon arrival, both bags moved to IV pump. Vancomycin infusion started. Currently on 3L O2 NC with sats in the mid to high 90s at rest. Pt removed O2 to ambulate to restroom, sats in mid 70s upon returning to bed, increased to low 90s with 3L O2 after 5 minutes at rest. Provided pt with urinal to use at bedside. Heart RRR, lungs CTA, A&Ox4. Provided pt with water and snacks. Denies other needs. Will continue to monitor.
[2020-05-12 21:43] LABS: ARTERIAL BLD GAS O2 SATURATION 95.6 % (92-100); ARTERIAL BLOOD GAS BASE EXCESS 0.7 (-2-2); ARTERIAL BLOOD GAS HCO3 26.6 meq/L (22-26); ARTERIAL BLOOD GAS PCO2 47.1 mmHg (35-45); ARTERIAL BLOOD GAS PO2 79.3 mmHg (80-100); ARTERIAL BLOOD GAS pH 7.37 (7.35-7.45)
[2020-05-12 22:00] LABS: COLLECTION METHOD CLEAN CATCH
[2020-05-12 22:20] LABS: MUCOUS Present /lpf; PH 6 (5-8); SQUAMOUS EPITHELIAL None Seen /hpf; URINE APPEARANCE Clear; URINE BACTERIA None Seen /hpf; URINE BILIRUBIN Negative (NEGATIVE); URINE BLOOD Negative (NEGATIVE); URINE COLOR Yellow; URINE GLUCOSE Negative (NEGATIVE); URINE KETONE 1+ (NEGATIVE); URINE LEUKOCYTE ESTERASE Negative (NEGATIVE); URINE NITRATE Negative (NEGATIVE); URINE PROTEIN(semi-quant) Negative (NEGATIVE); URINE RBC None Seen /hpf; URINE UROBILINOGEN Negative (NEGATIVE)
[2020-05-12 23:50] VITALS: BP 112/64; PULSE 80; TEMP 98.6
[2020-05-13] VITALS (8 sets, daily range): BP systolic 96–116; BP diastolic 68–82; PULSE 65–85; TEMP 87.5–99.8
--- NOTE | 2020-05-13 02:30 | NUR ---
Aid notified this RN that pt was diaphoretic and had soaked through clothes and sheets. This RN went to check on pt and administer Tylenol for possible fever. Pt only had low grade fever and stated that he was wet from his IV fluids leaking. Upon examination, this RN noted that port had become deaccessed with johnson needle sticking into pt's chest 1 inch below port site. This RN removed needle and reaccessed port, IV fluids restarted.
--- NOTE | 2020-05-13 04:00 | NUR ---
This RN and the aid attempted to take axillary and oral temps on pt multiple times using 3 different thermometers with a max temp of 94.4. Rectal temp was taken at 97.8.
[2020-05-13 06:33] LABS: BASO % 0.2 % (0.0-2.0); GRAN # 3.8 (1.4-6.5); GRAN % 87.8 % (42.2-75.2); HEMOGLOBIN 11.4 g/dl (13.5-18.0); LYMPH # 0.3 (1.2-3.4); LYMPH % 7.5 % (20.0-51.0); MEAN CELL VOLUME 100 fl (80.0-100.0); MEAN CORPUSCULAR HEMOGLOBIN 32 pg (27.0-31.0); MEAN CORPUSCULAR HGB CONC 32 g/dl (33.0-37.0); MONO # 0.2 (0.1-0.6); PLATELET COUNT 196 K/mm3 (130-400); RED BLOOD COUNT 3.53 M/mm3 (4.20-5.60); REDCELL DISTRIBUTION WIDTH-CV 14.5 % (11.5-14.5)
[2020-05-13 06:41] LABS: HEMATOCRIT 35.4 % (42.0-52.0)
--- NOTE | 2020-05-13 09:00 | NUR ---
PT AOX4, PT TOOK OXYGEN OFF TO GET TO BATHROOM, EDUCATED HIM TO NOT TAKE OFF OXYGEN AND BROUGHT BEDSIDE COMMODE FOR PT TO USE. UNABLE TO OBTAIN TEMP AXILLARY OR ORALLY ABOVE 93.8. RECTAL TEMP OBTAINED AT 95.7. PT HAVING SOFTER PRESSURES WITH LOW 100 SYSTOLIC, PT DENIES PAIN/DISCOMFORT, PT ON 3L OXYGEN, FLUIDS RUNNING, NO OTHER NEEDS AT THIS TIME.
--- NOTE | 2020-05-13 09:26 | NUR ---
DR. HOROWITZ NOTIFIED OF SOFT PRESSURES AND LOW TEMPERATURES.
--- NOTE | 2020-05-13 09:43 | NUR ---
The patient is a PUI and awaiting his COVID results. SW attempted to contact the patient's room phone to discuss discharge plan. He did no answer. MANDA then contacted the patient's , Lissette (ph#[phone]), to complete intake. The patient lives in [place] with his . Dossie reports that the patient is independent with ADLs and does not have any DME. Dossie reports that the patient did have home oxygen, but that they returned it back to [facility] a couple of weeks ago. They felt like the patient did not need it anymore. Dossie states that he was using 3 liters then. The patient's PCP is Dr. Jeffy Mae and he receives his medications from [facility]. Dossie reports that the patient does not have a DPOA-HC. Dossie reports that the plan is for the patient to return back home with her upon discharge. The patient is currently on 3 liters of oxygen. MANDA to continue to follow.
[2020-05-13 16:01] LABS: CREATININE, serum 0.72 (0.66-1.25); POTASSIUM 4.7 mmol/L (3.4-5.0)
--- NOTE | 2020-05-13 17:47 | NUR ---
PT HYPOTHERMIC WITH AXILLARY AND ORAL TEMPS, NORMAL TEMP WITH TYMPANIC THERMOMETOR, FLUIDS TURNED DOWN PER FLUID ORDER, ANTIBIOTICS RUNNING, BORDERLINE BP, PT AOX4, INDEPENDENT, DENIES DIZZINESS, DENIES PAIN/DISCOMFORT, NO OTHER NEEDS AT THIS TIME.
--- NOTE | 2020-05-13 19:15 | NUR ---
Received report from Jessica. Seen patient awake, lying in bed. With O2 at 3lpm via high flow. With port on right schest infusing NS at 75ml/hr. He denies pain. Call light within reach.
--- NOTE | 2020-05-13 21:50 | NUR ---
Patient's covid result came back negative. Informed Barbara JOHNSON via phone call and informed patient as well. Will transfer him to Rm. [phone].
[2020-05-14 01:01] VITALS: BP 104/57; PULSE 55; TEMP 97.9
[2020-05-14 04:14] VITALS: BP 109/65; PULSE 73; TEMP 97.2
[2020-05-14 06:19] LABS: HEMOGLOBIN 10.4 g/dl (13.5-18.0); MEAN CELL VOLUME 100 fl (80.0-100.0); MEAN CORPUSCULAR HEMOGLOBIN 33 pg (27.0-31.0); MEAN CORPUSCULAR HGB CONC 33 g/dl (33.0-37.0); MEAN PLATELET VOLUME 9.7 fl (7.4-10.4); PLATELET COUNT 197 K/mm3 (130-400); REDCELL DISTRIBUTION WIDTH-CV 14.4 % (11.5-14.5)
[2020-05-14 06:31] LABS: CALCIUM 8.5 mg/dL (8.4-10.2); CREATININE, serum 0.6 (0.66-1.25); POTASSIUM 4.3 mmol/L (3.4-5.0)
--- NOTE | 2020-05-14 06:34 | NUR ---
Patient had uneventful night. He is afebrile. Still on O2 at 3lpm via NC. No other needs noted.
[2020-05-14 07:32] LABS: BAND 20 % (0-10); LYMPHOCYTE 1 % (20.0-51.0); NEUTROPHILS 77 % (42.0-75.2)
[2020-05-14 08:30] VITALS: BP 106/63; PULSE 90; TEMP 97.2
--- NOTE | 2020-05-14 09:21 | NUR ---
Initial visist; Patient thanked Plywood Patcher for looking in on him, offering God's blessings and keeping him in Plywood Patcher's prayers. Plywood Patcher will follow up while Austin is a patient here.
--- NOTE | 2020-05-14 09:30 | NUR ---
PT PLEASANT, PT AOX4, PT C/O PAIN LATER IN THE DAY, FENTANYL PATCH AND OXYCODONE REORDERED AND GIVEN, OLD PATCH REMOVED, VITALS REVIEWED, MEDICATIONS GIVEN, ASSESSMENT PERFORMED. NO OTHER NEEDS AT THIS TIME.
[2020-05-14 12:30] VITALS: BP 115/73; PULSE 69; TEMP 97.4
[2020-05-14 16:58] VITALS: BP 127/71; PULSE 72; TEMP 97.6
--- NOTE | 2020-05-14 17:32 | NUR ---
pt pleasant, aox4, possible dc tomorrow, eager for discharge, fluids dc'd, pt medications given, pain managed with oxycodone and new fentanyl patch. vitals stable, on room air and satting well. no other needs.
--- NOTE | 2020-05-14 19:16 | NUR ---
Received report from Jessica. Seen patient in bed, watching TV. With Zosyn infusing right now. Denies pain and any needs at this time.
[2020-05-14 19:24] VITALS: BP 105/63; PULSE 81; TEMP 98.2
[2020-05-15 00:38] VITALS: BP 127/64; PULSE 81; TEMP 97.9
[2020-05-15 03:39] VITALS: BP 134/74; PULSE 60; TEMP 97.7
[2020-05-15 06:59] LABS: BASO % 0.1 % (0.0-2.0); CALCIUM 8.6 mg/dL (8.4-10.2); CREATININE, serum 0.59 (0.66-1.25); GRAN # 10.5 (1.4-6.5); GRAN % 88.1 % (42.2-75.2); HEMOGLOBIN 10.7 g/dl (13.5-18.0); LYMPH # 0.8 (1.2-3.4); LYMPH % 6.8 % (20.0-51.0); MEAN CELL VOLUME 100 fl (80.0-100.0); MEAN CORPUSCULAR HEMOGLOBIN 32 pg (27.0-31.0); MEAN CORPUSCULAR HGB CONC 32 g/dl (33.0-37.0); MEAN PLATELET VOLUME 10.2 fl (7.4-10.4); MONO # 0.5 (0.1-0.6); MONO % 4.4 % (1.7-9.3); PLATELET COUNT 237 K/mm3 (130-400); POTASSIUM 3.6 mmol/L (3.4-5.0); RED BLOOD COUNT 3.31 M/mm3 (4.20-5.60); REDCELL DISTRIBUTION WIDTH-CV 14.8 % (11.5-14.5)
--- NOTE | 2020-05-15 07:03 | NUR ---
REPORT GIVEN TO LARISSA SYLVESTER
--- NOTE | 2020-05-15 07:05 | NUR ---
Lying in bed with eyes open watching TV. Alert and oriented x4. Denies pain or shortness of air. Has occasional productive cough of white sputum, has put sputum in collection cannister, will send to lab at this time. Lungs clear to auscultation. Patient says that he is to go home today. Denies additional needs at this time.
[2020-05-15 07:09] LABS: HEMATOCRIT 33.1 % (42.0-52.0)
[2020-05-15 07:37] VITALS: BP 140/81; PULSE 67; TEMP 97.6
--- NOTE | 2020-05-15 09:31 | NUR ---
Follow-up visit; Patient thanked Fine Dining Server for looking in on him again this morning. Patient states he will be discharged today and thanked Fine Dining Server for keeping him in her prayers.
[2020-05-15] MEDS ORDERED: OMNICEF 300MG300 MG PO (09:59)
--- NOTE | 2020-05-15 10:04 | NUR ---
The patient is to discharge back home with his today, 05/15. No additional needs at this time.
--- NOTE | 2020-05-15 10:12 | NUR ---
Orders for patient to discharge. Tele dc'd at this time. Deaccessed port-a-cath at this time, needle intact. Applied 2x2 to site and reinforced with tegaderm. Explain to the patient that we will get his paperwork in order and will let him know when that is done so that he can call for his ride. Patient verbalizes understanding and will get dressed at this time.
--- NOTE | 2020-05-15 12:15 | NUR ---
Review all discharge instructions with the patient. Verbalizes understanding and signs discharge paperwork. Discharge packet provided to the patient. Patient will contact to have her come pick him up at ER entrance. Patient will use call light when she is here to pick him up.
[2020-05-15 12:20] VITALS: BP 141/82; PULSE 74; TEMP 97.9
--- NOTE | 2020-05-15 12:55 | NUR ---
Patient's is at the ER entrance to hop picker patient. This nurse assists patient out to POV with all belongings.
== END 2020-05-15 12:55 | disposition home or self-care (01) | DRG 193 ==
LOC: COL.ER 15:36 → MEDICAL 17:49 → COL.ER 17:49 → MEDICAL 17:49
PROVIDERS: Nurse Practitioner Family; Nurse Practitioner Primary Care; Physician Assistant; Student in an Organized Health Care Education/Training Program; ADMIT Emergency Medicine
DX: J18.9 Pneumonia, unspecified organism (principal); J96.01 Acute respiratory failure with hypoxia; J44.0 Chronic obstructive pulmonary disease with (acute) lower respiratory infection; E87.1 Hypo-osmolality and hyponatremia; C34.90 Malignant neoplasm of unspecified part of unspecified bronchus or lung; C79.51 Secondary malignant neoplasm of bone; D64.9 Anemia, unspecified; Z20.828 Contact with and (suspected) exposure to other viral communicable diseases; Z79.891 Long term (current) use of opiate analgesic; Z87.891 Personal history of nicotine dependence
CPT/HCPCS: 99223-AI; 99232-AI; 99233-AI; 99239; J1100; J1650; J2543; J3370; J7030; J7050; Q9967